=== PATIENT | male | born 1960 | race Caucasian/White ===

== ENCOUNTER 2018-06-07 10:34 | Inpatient (IN) ==
--- NOTE | 2018-06-06 14:56 | Anesthesia Evaluation PreOp ---
Date of Encounter: 06/07/18 Time of Encounter: 11:05 - Past History Planned Operation: revision fem-fem bpg Cardiac History: HTN, Other (CAD) Pulmonary History: Smoker, COPD, Other (hx metastatic lung cancer from colon cancer) [employer] History: Denies Any Significant HX, Other (blind left eye) Other Medical History: Thyroid (hypo), Other (colon cancer) Anesthesia History: No Prior Anesthetic Complications, Past Anesthesia (colon resection, LLL lung resection, partial liver resection, fem-fem bpg) Alcohol Use: none Drug use: marijuana Medications and Allergies Albuterol Sulfate [Proair Respiclick] 90 mcg IH PRN PRN 05/28/18 [History] Aspirin [Lo-Dose Aspirin EC] 81 mg PO DAILY 05/28/18 [History] Escitalopram [Lexapro] 20 mg PO BID 05/28/18 [History] Isosorbide MONOnitrate [Isosorbide Mononitrate] 10 mg PO BID 05/28/18 [History] Levothyroxine [Synthroid] 25 mcg PO 0630 05/28/18 [History] Linaclotide [Linzess] 145 mcg PO DAILY 05/28/18 [History] Nitroglycerin [Nitrostat] 0.4 mg SL PRN PRN 05/28/18 [History] Prochlorperazine Maleate [Compazine] 10 mg PO Q8HR PRN #90 tablet 05/28/18 [Rx] Simethicone [Gas-X] 80 mg PO PRN PRN 05/28/18 [History] clonazePAM [Clonazepam] 2 mg PO BID PRN 05/28/18 [History] 3 Allergy/AdvReac Type Severity Reaction Status Date / Time Hydromorphone [From Dilaudid] Allergy Hives Verified 05/28/18 11:25 Penicillins Allergy Itching Verified 05/28/18 11:25 - Meds/Allergy Pre-op Review Medications Reviewed: Yes Allergies Reviewed: Yes Anesthesia Results - Labs Laboratory Tests 05/28/18 05/28/18 12:15 12:15 Hgb 15.5 Hct 46.4 Plt Count 273 Sodium 136 Potassium 4.4 BUN 9 Creatinine 0.96 - Imaging EKG: report reviewed (SINUS RHYTHM) Anesthesia Exam Weight: 72kg NPO (# of Hours): 8 - HEENT Pupil (Motor): EOMI Mallampati: II Teeth: Edentulous Oral Opening: Greater than 3 - [employer] LOC: Oriented [employer] Motor: Normal RUE, Normal LUE, Normal RLE, Normal LLE, Normal Face [employer] Sensory: Normal: RUE, LUE, RLE, LLE, Face - Cardiac Rhythm: Regular Murmur: None - Pulmonary Breath Sounds: bilateral Clear Respiratory Effort: Symmetrical Anesthesia Assess/Plan ASA Score: 4 Modified Norma Scale for Level of Consciousness: Cooperative, oriented, and tranquil Anesthetic Plan: General Monitoring Plan: Standard Monitors, A-Line Recovery Plan: PACU (agrees to GA and lines)
[~2018-06-07 10:34] MED LIST: Vancomycin 1,000 MG in D5% in Water 250 ML IVPB ONE
[2018-06-07] MEDS ORDERED: CeFAZolin Syr 2,000MG/20 ML 2,000 MG/20 ML SYRINGE IVPB ONE (11:59)
[2018-06-07] MEDS ORDERED: Vancomycin 1,000 MG, Sodium Chloride IRRigation 1,000 ML IR ONE (12:00)
[2018-06-07] MEDS ORDERED: Heparin 1,000 UNITS/500 mL 500 ML ONE (12:04)
[2018-06-07] MEDS ORDERED: Albuterol 2.5 MG/3 ML NEBULIZER IH ONE (12:04)
[2018-06-07] MEDS ORDERED: Albuterol 2.5 MG/3 ML NEBULIZER ONE (12:06)
[2018-06-07] MEDS ORDERED: Ringers Solution, Lactated 1,000 ML IVC SCH (12:15)
--- NOTE | 2018-06-07 12:16 | History & Physical Report ---
Date of Encounter: 06/07/18 Time of Encounter: 12:00 24 Hour HP Update - Instructions Instructions: If the History and Physical is less than 30 days old and was completed prior to A.M. admission and or procedure and has NOT been updated on calendar day of procedure please complete this update prior to performing procedure. - Update Patient reports changes in Medical Condition: No Changes in examination, assessment, or condition: No Changes in Medication: No Preop tests/diagnostics Reviewed: Yes Surgery Remains Indicated: Yes Consent for Planned Operative Procedure(s) Verified: Yes - Pre-Operative Checklist Preoperative Checklist Indicated: Yes Prophylactic Antibiotic Ordered: Yes (Vancomycin due to MRSA risk) Home Medications Include Beta Jordin: No Beta Jordin Taken Today (Day of Surgery): No Beta Jordin Taken Yesterday (Day Prior to Surgery): No Is VTE Prophylaxis Indicated?: Yes
[2018-06-07] MEDS ORDERED: EPHEDrine 50 MG/ML VIAL ONE (13:26)
[2018-06-07] MEDS ORDERED: *HR* Magnesium Sulfate 1 GM/2 ML VIAL ONE (13:55)
[2018-06-07] MEDS ORDERED: Ondansetron 4 MG/2 ML VIAL IVP ONE (14:09)
[2018-06-07] MEDS ORDERED: *HR* Promethazine 25 MG/ML VIAL IVP PRN ×2 (14:09→16:53)
[2018-06-07] MEDS ORDERED: *HR* OxyCODONE/APAP 5/325 TABLET PO PRN (14:09)
--- NOTE | 2018-06-07 14:09 | Anesthesia Procedures ---
Date of Encounter: 06/07/18 Time of Encounter: 12:50 Procedures: Anesthesia - Arterial Line Consent obtained: written consent Time out performed: Yes Sedation: Versed (mg): 2 Sedation: Fentanyl (mcg): 50 Supplemental Oxygen via Nasal Cannula (L/min): 10 (via mask ) Local Anesthetic: Lidocaine 1% Amount of Anesthetic used (mls): 1 Size (Gauge): 20 Length (inches): 1 3/4 Technique Used: sterile prep, guide wire technique, direct puncture technique Post-Procedure: line taped into place, dry sterile dressing placed Complications: none Site: Radial R Vitals: VSS. Refer to intra-op anesthesia documentation sheet.
--- NOTE | 2018-06-07 15:40 | Operative Note ---
Date of procedure: 06/07/18 Pre-op diagnosis: Peripheral vascular disease with disabling claudication Post-op diagnosis: same Procedure: 1. Left common femora and deep femoral endarterectomy. 2. Left superficial femoral artery endarterectomy. 3. Revision of distal anastomosis of right to left femoral to femoral artery bypass with Hemashield patch angioplasty. Complications: None Anesthesia: GIN Surgeon: Varun Driscoll Was there an cashier assistant present: No Estimated blood loss (cc): 100 Specimen: Left lower extremity plaque Condition: stable Disposition: PACU Procedure in Detail: Indications: The patient is a 57-year-old male with a history of hyperlipidemia , coronary artery disease, tobacco abuse and peripheral vascular disease with disabling claudication. The patient's present undergone a femoral to femoral artery bypass graft. He presented with disabling left lower extremity claudication and CT angiography revealed stenosis of the left limb of his bypass as well as stenosis within the left femoral vessels. Revascularization was recommended to alleviate his symptoms and reduce his risk of graft occlusion. Procedure: The patient was identified in the preoperative area. The risks, benefits and alternatives were discussed with the patient and all questions were answered. The patient was then taken to the operating room and placed in supine position on the operative table. After the induction of general endotracheal anesthesia he was cleaned and draped in normal sterile fashion. The patient previous left groin incision was incised sharply. The incision was longitudinal in nature. Through a process of blunt, sharp and electrocautery dissection the skin, subcutaneous tissue and scar were dissected. The graft was dissected down to the level of the anastomosis with the femoral vessels. The common deep and superficial femoral arteries were dissected a significant distance away from the anastomosis in order to allow vessel loops to be passed around them. The patient then received 5000 units of heparin intravenously. Additional heparin was given throughout the case to maintain adequate anticoagulation. After waiting sufficient time for the heparin to circulate the femoral vessels were occluded along with the bypass graft. A longitudinal graftotomy was made into the anastomosis and extended into the [place] superficial femoral artery. Significant intimal hyperplasia was noted to be present within the common deep and superficial femoral arteries adjacent to the anastomosis. This resulted in high-grade stenosis of the vessels as well as the anastomosis. Using a dental freer a common, deep and superficial femoral endarterectomy was performed on the left femoral vessels. Endpoints were inspected and elevated flaps were not present. Upon release of the vessel loops vigorous retrograde flow was noted through the deep femoral artery. Retrograde flow was also noted through the superficial femoral artery. Strong pulsatile flow was noted from the bypass graft upon release of the clamp. The graft was noted to be redundant at the level of the anastomosis. The redundant graft material was excised. A Hemashield patch was then cut to fit the residual defect. The initial patch was then sutured in place with a running 6 6-0 Prolene. The patch extended from the superficial femoral artery onto the graft. Prior to completing the patch the vessels were flushed individually and then reoccluded. Heparinized saline was infused into the lumen. The patch was completed and flow was restored. Polyphasic signals were noted in the deep and superficial femoral artery. Thrombin and Gelfoam were used to aid in hemostasis. Meticulous hemostasis was obtained throughout the wound with electrocautery. Platelet rich and platelet poor plasma were infused into the wound. The wound was reapproximated with layers of 2-0 and 3-0 Vicryl. 3-0 Monocryl was used to reapproximate the skin. A sterile dressing was applied. The patient was then extubated and taken to the recovery room in stable condition.
[2018-06-07] MEDS: *HR* FentaNYL (PF) 100 MCG/2 ML VIAL IVP PRN ×2 (15:48→16:08)
--- NOTE | 2018-06-07 16:30 | Anesthesia Evaluation Post Op ---
Date of Encounter: 06/07/18 Time of Encounter: 16:29 - Vital Signs Vital Signs: Vital Signs/O2 Sat/Glucose, Most Recent Temp Pulse Resp BP Pulse Ox 97.8 F 86 16 111/65 93 06/07/18 16:06 06/07/18 16:16 06/07/18 16:16 06/07/18 16:16 06/07/18 16:16 - Lungs Lungs: Clear Ascult./Percussion - Airway Airway: Non-obstructed - Cardiovascular Regular Rate - Mental Status Mental Status: Alert & Oriented, Answers Appropriately - Pain Pain Scale: 0 (sleeping between care, will complain of pain when awake that is back to preop baseline.) Pain Scale used: Numeric (1 - 10) - Nausea Vomiting Nausea Vomiting: Not Present - Hydration Hydration: NPO - Discharge PostOp Status: Transfer Patient to floor
[2018-06-07] MEDS ORDERED: *HR* Labetalol 20 MG/4 ML SYRINGE IVP PRN (16:53)
[2018-06-07] MEDS ORDERED: clonazePAM 1 MG TABLET PO SCH (16:53)
[2018-06-07] MEDS ORDERED: Nitroglycerin 0.4 MG TAB.SUBL SL PRN ×2 (16:53→17:12)
[2018-06-07] MEDS ORDERED: Naloxone 0.4 MG/ML INJ IVP PRN (16:53)
[2018-06-07] MEDS ORDERED: 0.9 % Sodium Chloride 1,000 ML IVC SCH (16:53)
[2018-06-07] MEDS ORDERED: Acetaminophen 325 MG TABLET PO PRN (16:53)
[2018-06-07] MEDS: *HR* OxyCODONE Immed Rel 5 MG TABLET PO PRN ×2 (17:09→23:35)
[2018-06-07] MEDS: *HR* Metoprolol 5 MG/5 ML VIAL IVP SCH ×2 (17:30→23:36)
[2018-06-07] MEDS: Famotidine 20 MG TABLET PO SCH ×2 (19:54→20:04)
[2018-06-08] MEDS: *HR* HYDROcodone/Acet 5/325 mg TABLET PO PRN ×2 (00:54→07:08)
[2018-06-08] MEDS ORDERED: Vancomycin 1,000 MG in D5% in Water 250 ML IVPB ONE ×2 (01:00)
[2018-06-08 04:01] LABS: Basophils % 0.1 %; Hematocrit 39.4 % (37.5-50.1); Hemoglobin 13.1 g/dL (12.9-16.9); Lymphocytes % 6.6 %; Mean Corpuscular HGB Conc 33.2 g/dL (31.6-35.5); Mean Corpuscular Hemoglobin 31.3 pg (28.0-33.3); Mean Platelet Volume 8.8 fL (9.4-12.4); Monocytes # 0.6 K/mcL (0.0-1.3); Monocytes % 3.8 %; Neutrophils # 13.6 K/mcL (1.6-8.9); Platelet Count 265 K/mcL (140-400); Red Blood Count 4.19 M/mcL (4.19-5.50); Red Cell Distribution Width 13.5 % (11.5-14.5); Segmented Neutrophils % 88.5 %
[2018-06-08 04:20] LABS: BUN/Creatinine Ratio 11 (6-26); Blood Urea Nitrogen 9 mg/dL (6-20); Calcium 8.3 mg/dL (8.6-10.3); Carbon Dioxide 21 mEq/L (23-29); Chloride 106 mEq/L (98-107); Glucose 186 mg/dL (70-105); Osmolality,Calculated 280 (280-300); Potassium 4.4 mEq/L (3.5-5.1); Sodium 133 mEq/L (136-145); eGFR For Non-African Americans > 60 (> 60)
[2018-06-08] MEDS: *HR* OxyCODONE Immed Rel 5 MG TABLET PO PRN (05:49)
[2018-06-08] MEDS: *HR* Metoprolol 5 MG/5 ML VIAL IVP SCH (05:51)
[2018-06-08] MEDS ORDERED: *HR* Heparin 5,000 UNIT/ML VIAL SQ SCH ×2 (06:00)
[2018-06-08] MEDS ORDERED: Levothyroxine 25 MCG TABLET PO SCH (06:30)
[2018-06-08 06:44] VITALS: BP 110/73
--- NOTE | 2018-06-08 06:49 | Discharge Summary ---
Date of Encounter: 06/08/18 Time of Encounter: 07:15 - Discharge Diagnosis (1) Atheroscler nonbiologic bypass graft left leg w/intermit claudication Priority: Primary Status: Chronic Comments: The patient is postoperative day #1 after revision of his left femoral to femoral artery bypass graft with left lower extremity endarterectomy. He reports that his leg feels better. He reports adequate pain control. His wound appears to be healing. He will be discharged today. (2) Mixed hyperlipidemia Priority: Secondary Status: Chronic (3) Atherosclerosis of [place] coronary artery of [place] heart without angina pectoris Priority: Secondary Status: Chronic (4) Tobacco abuse Priority: Secondary Status: Chronic - Hospital Course Hospital course: Mr. Lynn is a 57 year old male with history of coronary artery disease, hyperlipidemia and tobacco abuse. The patient also has a history of peripheral vascular disease with disabling claudication. He was found have stenosis of the left femoral vessels as well as the left limb of his bypass graft. He was admitted and underwent revision of his graft as well as left lower extremity endarterectomy. He tolerated the procedure well and was discharged home in stable condition on postoperative day #1 without complications. Time spent discussing smoking cessation with patient: 3 to 10 minutes - Time Spent with Patient Total time spent providing and/or coordinating discharge services: - Discharge Medications Prescriptions: OxyCODONE/APAP 5/325 [Percocet 5/325 MG] 1 each PO Q6HR PRN 7 Days #25 tablet PRN Reason: Postoperative pain Home Medications: Aspirin [Lo-Dose Aspirin EC] 81 mg PO DAILY 05/28/18 [History] Isosorbide MONOnitrate [Isosorbide Mononitrate] 30 mg PO DAILY 05/28/18 [History ] Levothyroxine [Synthroid] 25 mcg PO 0630 05/28/18 [History] Nitroglycerin [Nitrostat] 0.4 mg SL Q5MIN PRN 05/28/18 [History] Simethicone [Gas-X] 80 mg PO DAILY PRN 05/28/18 [History] Diltiazem HCl [Diltiazem 12Hr ER] 120 mg PO DAILY 06/07/18 [History] Docusate Sodium [Stool Softener] 50 mg PO DAILY PRN 06/07/18 [History] Escitalopram [Lexapro] 20 mg PO BID 06/07/18 [History] Famotidine [Pepcid] 20 mg PO HS 06/07/18 [History] Linaclotide [Linzess] 145 mcg PO DAILY 06/07/18 [History] Omeprazole [PriLOSEC] 20 mg PO DAILY 06/07/18 [History] Prochlorperazine Maleate 10 mg PO TID PRN 06/07/18 [History] clonazePAM [Klonopin] 2 mg PO TID PRN 06/07/18 [History] OxyCODONE/APAP 5/325 [Percocet 5/325 MG] 1 each PO Q6HR PRN 7 Days #25 tablet [Rx] Allergies/Adverse Reactions: 3 Allergy/AdvReac Type Severity Reaction Status Date / Time Hydromorphone [From Dilaudid] Allergy Hives Verified 06/07/18 12:40 Penicillins Allergy Itching Verified 06/07/18 12:40 atorvastatin [From Lipitor] AdvReac Muscle Pain Verified 06/07/18 12:39 Cortisone AdvReac Agitated Verified 06/07/18 12:39 gabapentin AdvReac Fatigued Verified 06/07/18 12:39 pregabalin [From Lyrica] AdvReac Fatigued Verified 06/07/18 12:39 rosuvastatin [From Crestor] AdvReac Muscle Pain Verified 06/07/18 12:39 Date of admission: 06/07/18 16:34 Primary care physician: Karen Mo MD Consults: 06/07/18 16:45 Consult to Nutrition [CONS] Routine Comment: Consulting Provider: NUTRITION Reason for Dietary Consult: MST Score Procedure(s) Performed: 1. Revision of left limb of femoral to femoral artery past. 2. Left femoral endarterectomy. Discharging clinician: Varun Driscoll Anticipated date of discharge: 06/08/18 Exam Vital Signs, Last 4 Hours Temp Pulse Resp BP Pulse Ox 06/08/18 06:37 97.6 F 71 77 110/73 92 06/08/18 06:10 57 125/75 06/08/18 03:57 97.5 F L 81 19 118/62 92 06/08/18 03:51 97.6 F 67 18 118/62 95 General: Present: Conversant, No Apparent Distress HEENT: Present: Pupils equal Neck: Absent: JVD Cardiac: Present: Reg Rate and Rhythm Lungs: Present: Normal Breath Sounds Neuro: Present: Alert and responsive, No focal deficits noted Abdomen: Present: Soft, Non-tender Vascular: Present: Normal capillary refill, Surgical incisions (Incision clean, dry, intact without erythema or drainage, no hematoma), Other (Pedal signals present bilaterally.). Absent: Cyanosis, Edema Skin: Present: No rashes noted on visualized skin - Patient Status Disposition: Home, Self-Care Condition: Good Functional capacity at discharge: independent ambulation Overall status at discharge: patient is back to baseline - Discharge Instructions Follow Up With: Varun Driscoll MD [Partnered Physician] - 07/24/18 1:00 pm Cristy Donis CNP [Advanced Practice Nurse] - 06/18/18 8:00 am Additional Instructions: May remove bandage and shower on 06/09/2018. Wash wound gently and pat to dry. Applied dry gauze to wound daily for 7 days. No tub baths or swimming until 07/07/2018. Call Dr. Driscoll at [phone] with questions or concerns. - Diet and Activity Activity: increase activity as tolerated Diet: low fat, low cholesterol - VTE Documentation of Mechanical Device: Intermittent pneumatic compression device
[2018-06-08] MEDS ORDERED: Isosorbide MONOnitrate (24 HR) 30 MG TAB.ER.24H PO SCH (09:00)
[2018-06-08] MEDS ORDERED: Simethicone 80 MG TAB.CHEW PO PRN (09:00)
[2018-06-08] MEDS ORDERED: Aspirin Enteric Coated 81 MG Tablet PO SCH (09:00)
== END 2018-06-08 08:35 | disposition home or self-care (01) | DRG 181 ==
LOC: SAMDAY 10:34 → 2NNU 16:34
PROVIDERS: ADMIT Surgery; ATTEND Surgery
PROC: VASFFBG (ICD-10-PCS; 2018-06-07 12:00)